=== PATIENT | female | born 2000 | race Caucasian/White ===

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

== ENCOUNTER 2021-06-04 17:05 | Emergency (ER) | payer BC ==
[~2021-06-04] VITALS: Ht 154.9 cm; Wt 83.9 kg
[2021-06-04 17:27] VITALS: BP_SYST 128
--- NOTE | 2021-06-04 20:12 | NUR ---
Patient to ER bed 8 to gown for evaluation. Side rails up.
--- NOTE | 2021-06-04 20:20 | NUR ---
Blood for labwork drawn. Patient tolerated WELL
--- NOTE | 2021-06-04 20:50 | NUR ---
PT TAKEN TO ULTRASOUND VIA [facility].
[2021-06-04 20:52] LABS: RED BLOOD CELL COUNT(AUTO) 4.53 MIL/uL (4.2-6.2)
--- NOTE | 2021-06-04 20:56 | NUR ---
Dr. Mcguire bedside for pt eval
[2021-06-04 20:59] LABS: BASOPHILS % (AUTO) 0.2 % (0.0-2.0); EOSINOPHILS % (AUTO) 0.2 % (0.0-4.0); HEMATOCRIT 37.5 % (36-48); HEMOGLOBIN 12.8 g/dL (12.0-16.0); LYMPHOCYTES # (AUTO) 2.5 K/uL (1.0-5.5); LYMPHOCYTES % (AUTO) 22.5 % (20.5-51.5); MEAN CORPUSCULAR HEMOGLOBIN 28 pg (27-31); MEAN CORPUSCULAR HGB CONC 34 % (32-36); MEAN CORPUSCULAR VOLUME 83 fL (79.0-98.0); MONOCYTES # (AUTO) 0.8 K/uL (0.0-1.0); MONOCYTES % (AUTO) 7.6 % (1.7-9.3); NEUTROPHILS # (AUTO) 7.6 K/uL (1.8-7.7); NEUTROPHILS % (AUTO) 69.5 % (40.0-70.0); PLATELET COUNT (AUTO) 338 K/uL (130-430); RED CELL DISTRIBUTION WIDTH 16.2 % (9.0-15.0)
--- NOTE | 2021-06-04 21:15 | NUR ---
PT GAVE GRANDMOTHER NUMBER. SHEN PEÑA (GRANDMOTHER) [phone]
[2021-06-04] MEDS ORDERED: CEPH-548 PO (21:50)
[2021-06-04 22:03] VITALS: BP_SYST 128
--- NOTE | 2021-06-04 22:03 | NUR ---
Patient given written and verbal discharge instructions and verbalizes understanding. DR. ZACK STORY MD discussed with patient the results and treatment provided. Patient in stable condition. ID arm band removed. Rx of CEPHALEXIN given. Patient educated on pain management and to follow up with PMD. Pain Scale 0/10. Opportunity for questions provided and answered. Medication side effect fact sheet provided.
== END 2021-06-04 22:03 | disposition home or self-care (01) ==
LOC: SED 17:05
DX: O20.0 Threatened abortion (principal); L73.9 Follicular disorder, unspecified; Z79.899 Other long term (current) drug therapy; Z3A.01 Less than 8 weeks gestation of pregnancy
CPT/HCPCS: 36415; 76856-TC; 81025; 84702; 85025; 86886; 86900; 86901; 99284

== ENCOUNTER 2022-08-05 14:01 | Emergency (ER) | payer BC ==
[~2022-08-05] VITALS: Ht 154.9 cm; Wt 72.6 kg
[~2022-08-05 14:01] MED LIST: CEPH-548 PO
[2022-08-05 14:08] VITALS: BP_SYST 121
--- NOTE | 2022-08-05 14:30 | NUR ---
Patient to ER bed 05 to gown for evaluation. Side rails up.
--- NOTE | 2022-08-05 14:30 | NUR ---
ER at bedside examining patient.
[2022-08-05 15:38] LABS: BARBITURATE, URINE NEGATIVE (NEG <=200); BENZODIAZEPINE, URINE NEGATIVE (NEG <=150); COCAINE, URINE NEGATIVE (NEG <=150); METHAMPHETAMINES SCREEN,URINE NEGATIVE (NEG <=500); OPIATE, URINE NEGATIVE (NEG <=100); PHENCYCLIDINE SCREEN,URINE NEGATIVE (NEG <=25); UR TRICYCLIC ANTIDEPRESSANTS NEGATIVE (NEG <=300); URINE AMPHETAMINE NEGATIVE (NEG <=500); URINE METHADONE NEGATIVE (NEG <=200); URINE OXYCODONE SCREEN NEGATIVE (NEG <=100); URINE PROPOXYPHENE SCREEN NEGATIVE (NEG <=300)
[2022-08-05 15:39] LABS: CANNABINOID, URINE POSITIVE (NEG <=50)
--- NOTE | 2022-08-05 15:48 | NUR ---
Pt brought in by BLS from home. Chief complaint shaking and stiffness related to history of behavioral seizures. Pt complains of headache, Right lower quadrant abdominal pain 6/10, nausea with episodes of vomiting for 48 hours. Pt parent states pt recently seen at [facility] and Given antidepressant medicaine Zoloft.
[2022-08-05 15:59] LABS: BASOPHILS % (AUTO) 0.2 % (0.0-2.0); EOSINOPHILS % (AUTO) 0.1 % (0.0-4.0); HEMATOCRIT 38.5 % (36-48); HEMOGLOBIN 12.9 g/dL (12.0-16.0); LYMPHOCYTES % (AUTO) 23.8 % (20.5-51.5); MEAN CORPUSCULAR HEMOGLOBIN 29 pg (27-31); MEAN CORPUSCULAR HGB CONC 34 % (32-36); MEAN CORPUSCULAR VOLUME 85 fL (79.0-98.0); MONOCYTES # (AUTO) 0.8 K/uL (0.0-1.0); MONOCYTES % (AUTO) 6.7 % (1.7-9.3); NEUTROPHILS # (AUTO) 8.6 K/uL (1.8-7.7); NEUTROPHILS % (AUTO) 69.2 % (40.0-70.0); PLATELET COUNT (AUTO) 375 K/uL (130-430); RED BLOOD CELL COUNT(AUTO) 4.54 MIL/uL (4.2-6.2); RED CELL DISTRIBUTION WIDTH 14.1 % (9.0-15.0); WHITE BLOOD COUNT (AUTO) 12.4 K/uL (4.8-10.8)
--- NOTE | 2022-08-05 16:15 | NUR ---
Pt to radiology with tech via [employer] ([employer])harinder.
[2022-08-05 16:22] LABS: CALCIUM 9.5 mg/dL (8.4-11.0); CREATININE 0.56 mg/dL (0.55-1.30)
[2022-08-05 16:26] LABS: ALBUMIN 4.2 g/dL (3.4-4.8); TOTAL BILIRUBIN 0.8 mg/dL (0.0-1.0)
--- NOTE | 2022-08-05 16:45 | NUR ---
Patient given written and verbal discharge instructions and verbalizes understanding. ER MD discussed with patient the results and treatment provided. Patient in stable condition. ID arm band removed. Patient educated on non epileptic seizures and to follow up with PMD. Opportunity for questions provided and answered. Medication side effect fact sheet provided.
[2022-08-05 17:29] VITALS: BP_SYST 121
== END 2022-08-05 16:45 | disposition home or self-care (01) ==
LOC: SED 14:01
DX: R56.9 Unspecified convulsions (principal); R11.10 Vomiting, unspecified; R51.9 Headache, unspecified; Z79.899 Other long term (current) drug therapy
CPT/HCPCS: 36415; 70450-TC; 76376; 80053; 80307; 83605; 84703; 85025; 99284

== ENCOUNTER 2023-11-12 23:36 | Emergency (ER) | payer BC ==
[~2023-11-12] VITALS: Ht 152.4 cm; Wt 68.0 kg
[2023-11-13 00:04] VITALS: BP_SYST 129; PULSE 109; RESP 20; TEMP 98; O2SAT 99
[2023-11-13] MEDS ORDERED: HYDR-500 PO (00:34)
[2023-11-13] MEDS ORDERED: IBUP-1969 PO (00:34)
[2023-11-13] MEDS ORDERED: ONDA8TAB60 PO (00:34)
[2023-11-13] MEDS: ONDANSETRON 4 MG ODT TAB PO ONE (00:49)
[2023-11-13] MEDS: KETOROLAC TROMETHAMINE 60 MG/2 ML VIAL IM ONE (00:49)
[2023-11-13 01:20] VITALS: BP_SYST 129; PULSE 109; RESP 20; TEMP 98; O2SAT 99
== END 2023-11-13 01:15 | disposition home or self-care (01) ==
LOC: SED 23:36
DX: R07.89 Other chest pain (principal); R11.2 Nausea with vomiting, unspecified; R03.0 Elevated blood-pressure reading, without diagnosis of hypertension; F12.90 Cannabis use, unspecified, uncomplicated; F14.90 Cocaine use, unspecified, uncomplicated; Z79.2 Long term (current) use of antibiotics
CPT/HCPCS: 99283; 93005; 96372; Q0162; J1885